=== PATIENT | female | born 1950 | race Two or more races ===

== ENCOUNTER 2016-12-15 10:20 | Day surgery (SDC) | payer OTHER ==
--- NOTE | 2016-12-14 17:33 | PCM.PREANE ---
Preanesthetic Assessment - ANESTHESIA/TRANSFUSION/FAMILY HX Anesthesia/Transfusion History: Prior Anesthesia (MAC before without complications) Family History of Anesthesia Reaction: No - REVIEW OF SYSTEMS Constitutional: Reports: no symptoms NEUROLOGY TECHNICIAN: Reports: no symptoms Respiratory: Reports: no symptoms Cardiovascular: Reports: no symptoms GI: Reports: no symptoms Other: Reports: none - PHYSICAL ASSESSMENT HR: 78 O2 Sat by Pulse Oximetry: 98 RR: 16 BP: 144/80 Height: 5 ft 8 in Weight: 94.801 kg ASA Class: 2 Mental Status: alert & oriented x3 Airway Class: Mallampati = 1 Dentition: Reports: normal dentition, missing tooth/teeth Thyro-Mental Finger Breadths: 3 Mouth Opening Finger Breadths: 3 ROM/Head Extension: full Respiratory Status: lungs clear to auscultation bilaterally Cardiovascular Status: regular rate & rhythm, normal S1, S2, no murmur, blood pressure WNL - ALLERGIES Allergies/Adverse Reactions: Allergies Allergy/AdvReac Type Severity Reaction Status Date / Time No Known Allergies Allergy Verified 12/13/16 08:40 - ANESTHESIA PLAN Anesthesia Type Planned: MAC - ACKNOWLEDGEMENTS Pt an appropriate candidate for the planned anesthesia: Yes Alternatives and risks of anesthesia discussed w pt/guardian: Yes Pt/Guardian understands and agree with anesthesia plan: Yes PreAnesthesia Questionnaire HEENT History: Reports: Other (see below) Other HEENT History: wears glasses Cardiovascular History: Reports: None Respiratory History: Reports: None Gastrointestinal History: Reports: Colon polyp Other Gastrointestinal History: occasional heartburn Genitourinary History: Reports: None BATH ATTENDANT History: Reports: Musculoskeletal History: Reports: None Neurological History: Reports: None Psychiatric History: Reports: Anxiety Endocrine/Metabolic History: Reports: Obesity/BMI 30+ Hematologic History: Reports: None Immunologic History: Reports: None Oncologic (Cancer) History: Reports: None Dermatologic History: Reports: None - Infectious Disease History Infectious Disease History: Reports: None - Past Surgical History Head Surgeries/Procedures: Reports: None GI Surgical History: Reports: Cholecystectomy, Colonoscopy - SUBSTANCE USE Smoking Status *Q: Former Smoker Tobacco Use Within Last Twelve Months: Cigarettes Recreational Drug Use History: No - HOME MEDS Home Medications: Home Meds Emergen C Chewable 1 tab.chew PO DAILY 12/13/16 [History] Fluticasone Propionate [Flonase Allergy Relief] 1 spray NASBOTH DAILY PRN [History] Multivitamin [Multivitamins] 1 tab PO DAILY 12/13/16 [History] Naproxen 1 tab PO ASDIRECTED PRN 12/13/16 [History] buPROPion HCl [Wellbutrin SR] 150 mg PO DAILY 12/13/16 [History] diphenhydrAMINE HCl [Diphenhydramine HCl] 1 tab PO BEDTIME PRN 12/13/16 [History ] - CURRENT (IN HOUSE) MEDS Current Meds: Current Medications Lactated Ringer's (Ringers, Lactated) 1,000 mls @ 125 mls/hr IV ASDIRECTED SIMI
[~2016-12-15 10:20] MED LIST: Lactated Ringers 1,000 ML IV SCH; Lidocaine 2% 5 ML SDV ONE; Propofol 200 MG/20 ML SDV ONE
--- NOTE | 2016-12-15 12:14 | PCM.OPNOTE ---
- General Post-Op/Procedure Note Date of Surgery/Procedure: 12/15/16 Operative Procedure(s): Esophagogastroduodenoscopy with biopsy. Colonoscopy with biopsy. Pre Op Diagnosis: Abdominal pain. Rectal bleeding. Personal history of colon cancer. Post-Op Diagnosis: Mild gastritis. High-grade obstruction of the rectosigmoid. Anesthesia Technique: MAC (ASA II) Primary Surgeon: Raman Ragland Wood Craftsman: Krista Chaidez Condition: Good Free Text/Narrative:: Dictation [id number], and [id number]
[2016-12-15] MEDS ORDERED: Lactated Ringers 1,000 ML IV SCH (12:15)
[2016-12-15 12:40] VITALS: BP 107/63
--- NOTE | 2016-12-15 12:53 | PCM.POSTAN ---
POST ANESTHESIA ASSESSMENT - MENTAL STATUS Mental Status: alert, oriented - RESPIRATORY Respiratory Status: respiratory rate WNL, airway patent, O2 saturation stable - CARDIOVASCULAR CV Status: pulse rate WNL, blood pressure stable - GASTROINTESTINAL GI Status: no symptoms - POST OP HYDRATION Hydration Status: adequate & stable
--- NOTE | 2016-12-15 13:04 | PCM48HPAN ---
Post Anesthesia Note - EVALUATION WITHIN 48HRS OF ANESTHETIC Vital Signs in Normal Range: Yes Patient Participated in Evaluation: Yes Respiratory Function Stable: Yes Airway Patent: Yes Cardiovascular Function Stable: Yes Hydration Status Stable: Yes Pain Control Satisfactory: Yes Nausea and Vomiting Control Satisfactory: Yes Mental Status Recovered: Yes
--- NOTE | 2016-12-15 17:09 | CR ---
EXAMINATION: Single contrast barium enema HISTORY: High-grade obstruction COMPARISON: None TECHNIQUE: Single contrast barium enema was performed. FINDINGS: There is a high-grade obstruction within the distal sigmoid colon. Only a small string of contrast made it through the obstruction. The more proximal small bowel was not able to be filled du e to the degree of obstruction and contrast with leak around the enema tube. IMPRESSION: 1. High-grade luminal obstruction of the distal sigmoid colon consistent with a neoplastic process. 2. The remaining colon was not able to be evaluated due to the severity of the narrowing.
--- NOTE | 2016-12-18 07:48 | OR ---
SURGEON: Raman Ragland M.D. DATE OF PROCEDURE: 12/15/2016 OPERATION PERFORMED: Esophagogastroduodenoscopy with biopsy. RN TRANSFER: Dr. Chaidez. ANESTHESIA: MAC. ASA CLASSIFICATION: II. PREOPERATIVE DIAGNOSES: Abdominal pain. Rectal bleeding. POSTOPERATIVE DIAGNOSIS: Mild gastritis. DESCRIPTION OF PROCEDURE: The patient was taken to the endoscopy room, positioned on the endoscopy table in the supine position. Time-out was called for appropriate identification of the patient and procedure. Following satisfactory attainment of MAC with a bite block placed between the patient's teeth, the gastroscope was inserted into the mouth and advanced without difficulty through the esophagus and stomach into the duodenum, where examination was carried out in a retrograde fashion. Duodenum showed no acute inflammatory changes. Stomach showed a mild gastritis. Antral biopsies were obtained to look for the presence of Helicobacter pylori. The gastroscope was retroflexed to visualize the proximal stomach. Again, gastritis was noted but no tumors or ulcers were seen. The scope was straightened, the stomach aspirated, the scope slowly withdrawn. The GE junction was well defined and showed no acute inflammatory changes. She did have a small hiatal hernia that was viewed in a forward viewing fashion. The esophagus demonstrated good contractility. The vocal cords were not able to be visualized as the scope was withdrawn. The patient tolerated this portion of the procedure well. Following colonoscopy, she was taken to recovery room in stable condition. SILVANA RAMIREZ /[id number]
--- NOTE | 2016-12-18 07:51 | OR ---
SURGEON: Raman Ragland M.D. DATE OF PROCEDURE: 12/15/2016 OPERATION PERFORMED: Attempted colonoscopy. PLUMBING TECHNICIAN: Dr. Chaidez. ANESTHESIA: MAC. ASA CLASSIFICATION: II. PREOPERATIVE DIAGNOSIS: Rectal bleeding. POSTOPERATIVE DIAGNOSIS: Near complete obstruction of the rectosigmoid secondary to neoplastic-appearing process. DESCRIPTION OF PROCEDURE: With the patient having completed esophagogastroduodenoscopy with biopsy, she was now positioned in the left lateral decubitus position. The colonoscope was inserted into the rectum and in the proximal rectum and distal sigmoid, there was a large almost completely obstructing neoplasm. Despite multiple maneuvers, I was never able to advance the scope safely through this area. Biopsies of this area were taken. It was necessary to terminate the procedure as we could not safely or satisfactorily maneuver the colonoscope through this area. The patient will undergo barium enema today. CEA will be ordered. SILVANA / JAMES /[id number]
== END 2016-12-15 13:00 | disposition home or self-care (01) ==
LOC: MW.SDS 10:20
PROVIDERS: ATTEND Surgery
PROC: 0DB68ZX Excision of Stomach, Via Natural or Artificial Opening Endoscopic, Diagnostic (ICD-10-PCS; principal; 2016-12-15)
PROC: 0DBP8ZX Excision of Rectum, Via Natural or Artificial Opening Endoscopic, Diagnostic (ICD-10-PCS; 2016-12-15)
PROC: 0DBN8ZZ Excision of Sigmoid Colon, Via Natural or Artificial Opening Endoscopic (ICD-10-PCS; 2016-12-15)
DX: C20 Malignant neoplasm of rectum (principal); K29.70 Gastritis, unspecified, without bleeding; K44.9 Diaphragmatic hernia without obstruction or gangrene; E66.9 Obesity, unspecified; F41.9 Anxiety disorder, unspecified; Z85.038 Personal history of other malignant neoplasm of large intestine; Z87.891 Personal history of nicotine dependence; Z79.899 Other long term (current) drug therapy; Z98.890 Other specified postprocedural states; Z90.49 Acquired absence of other specified parts of digestive tract; Z68.31 Body mass index [BMI] 31.0-31.9, adult
CPT/HCPCS: 36415; 43239; 45331; 74270; 82378; 88305; 88312; J7120; 00740; J2704